=== PATIENT | male | born 1990 | race Caucasian/White ===

== ENCOUNTER 2019-02-11 00:36 | Emergency (ER) | payer SELFPAY ==
[2019-02-11] MEDS: DIPHTH/TET/ACEL PERTUSS (ADULT) 0.5 ML VIAL IM* (01:00)
[2019-02-11] MEDS: LIDOCAINE 1%/EPI (MDV) 50 ML INJ INJ ×2 (01:35→01:37)
[2019-02-11] MEDS: BACITRACIN 0.5%/ZINC 28.35 GM OINT TOP (01:37)
[2019-02-11] MEDS: LIDOCAINE 1%/EPI 30 ML INJ INJ (01:37)
[2019-02-11] MEDS: BACITRACIN 0.9 GM OINT TOP (01:37)
== END 2019-02-11 03:11 | disposition home or self-care (01) ==
LOC: FTE 00:36
DX: S01.112A Laceration without foreign body of left eyelid and periocular area, initial encounter (principal); S01.21XA Laceration without foreign body of nose, initial encounter; W22.8XXA Striking against or struck by other objects, initial encounter; Y92.89 Other specified places as the place of occurrence of the external cause; Z23 Encounter for immunization
CPT/HCPCS: 12013; 70486; 90471; 90715; 99284-25

== ENCOUNTER 2019-02-13 08:22 | Emergency (ER) | payer SELFPAY, OTHER | END 2019-02-13 08:45 | disposition home or self-care (01) | LOC: FTE 08:22 | DX: Z48.01 Encounter for change or removal of surgical wound dressing (principal) | CPT/HCPCS: 99281 ==

== ENCOUNTER → 2019-02-16 | Emergency (ER) | payer SELFPAY | END | disposition home or self-care (01) | LOC: FTE 08:21 | DX: Z48.02 Encounter for removal of sutures (principal) | CPT/HCPCS: 99281 ==